=== PATIENT | male | born 1960 | race Caucasian/White ===

== ENCOUNTER → 2024-10-04 | Outpatient (CLI) | payer MEDICARE ==
[~2024-10-04] MED LIST: BENADRYL25 MG PO; EPIN.3I IM; Inderal80 MG PO; MELO7.5 PO; METO100ER PO; Pepcid20 MG PO; Percocet 5-3251 EACH PO; Prednisone20 MG PO; Prinivil10 MG PO
== END ==
LOC: LAB 07:48 → LAB SHORT 07:48 → PLD 07:48
DX: L30.8 Other specified dermatitis (principal)
CPT/HCPCS: 88305

== ENCOUNTER → 2024-10-24 | Outpatient (CLI) | payer MEDICARE | LOC: LAB SHORT 07:40 → LAB 07:40 | DX: D23.61 Other benign neoplasm of skin of right upper limb, including shoulder (principal); D49.2 Neoplasm of unspecified behavior of bone, soft tissue, and skin | CPT/HCPCS: 88305 ==

== ENCOUNTER → 2025-05-18 | Outpatient (CLI) | payer MEDICARE | LOC: LAB SHORT 13:15 → LAB 13:15 | DX: R31.29 Other microscopic hematuria (principal) | CPT/HCPCS: 87086 ==